=== PATIENT | male | born 1995 | race Two or more races ===

== ENCOUNTER 2025-03-10 19:13 | Emergency (ER) | payer MEDICAID, SELFPAY ==
[2025-03-10 19:14] VITALS: BMI 30.1
--- NOTE | 2025-03-10 19:17 | EKG_ITS ---
[facility] Test Date: 2025-03-10 Pat Name: MONICA RIZVI Department: Room: - Gender: Male Obiee Obia Solution Architect: : 1995 Requested By: ED Temporary Provider Order Number: [id number] Reading MD: ED Temporary Provider Measurements Intervals [place] Rate: 80 P: 47 [place]: 139 QRS: 59 QRSD: 98 T: 76 QT: 353 QTc: 409 Interpretive Statements SINUS RHYTHM NONSPECIFIC T-WAVE ABNORMALITY No previous ECG available for comparison /store/S0/[id number]/ecg/[id number].pdf
[2025-03-10 19:35] VITALS: BP 148/98; PULSE 80; RESP 18; TEMP 37.3; O2SAT 99
--- NOTE | 2025-03-10 19:47 | PD.EDARRY ---
ED Arrhythmia Palp. RME/HPI General Chief Complaint: Arrhythmia/Palpitations Stated Complaint: FAST HEART RATE WITH SOB, DIZZINESS, AND NAUSEA Time Seen by Provider: 03/10/25 19:55 Arrival date/time: 03/10/25 19:13 RME / HPI RME / HPI narrative: This section includes all my notes and documentations, including HPI, PE, and ED course. Andrés Cunningham MD HPI: 30yo male here with intermittent palpitations with other symptoms since yesterday. Symptoms can include intense fear, pounding and racing heart, sweating, chills, shaking, trouble breathing, chest pain, stomach pain, nausea, numbness and tingling in the hands and feet and face, confusion, hot flashes, and feeling faint. No other complaints. ROS: All negative except as documented in HPI. Physical Exam: General: Alert and oriented. Appears anxious. Eyes: Conjunctivae and lids clear. ENT: No nasal congestion. Neck: Supple. Heart: RRR. Lungs: No respiratory distress. Good air movement. No rhonchi, wheezing, rales. Skin: Warm and dry. Neuro: Alert and oriented X 3. I reviewed all diagnostic test results. My interpretation of the EKG is sinus rhythm with nonspecific ST-T changes. My interpretation of the chest x-ray is NAD. Blood tests unremarkable. At this point, diagnoses include palpitations due to anxiety. Treatment here included Xanax. Significant improvement. Recommended more outpatient cardiac workup. Based on my best medical judgment, made decision no further evaluation or treatment indicated at this time. Patient understands and agrees to the discharge instructions customized and printed, see below. Discharge instructions from Dr. Cunningham: 1. After extensive evaluation, there is no life-threatening condition. Such as heart attack or pneumothorax (collapsed lung). 2. Your symptoms may be due to underlying stress or anxiety or nerves. This is fairly common. 3. Take Xanax as needed. Whether this helps or not will be valuable information to your private doctors. 4. See a private doctor outside ER on 03/11/2025. To make sure there is no serious underlying heart condition, ask to help you get more tests for your heart that cannot be done here in the ER. Such as Holter Monitor (cardiac monitoring at home from a day to even a month), heart stress test (on treadmill or with medication), echocardiogram (imaging of your heart structures), heart catherization (checking for blockages in your heart arteries), and a referral to see a Manager Digital [employer]. 5. Seek immediate medical care with worsening or with any concerns. Andrés Cunningham MD Related Data Previous Rx's ?Medication ?Instructions ?Recorded naproxen 500 mg tablet 500 mg PO BID PRN pain #14 tabs 03/15/18 meclizine 25 mg tablet 25 mg PO BID PRN dizziness #20 tabs 10/08/21 dicyclomine 20 mg tablet 20 mg PO TID PRN abdominal pain 09/16/23 #30 tabs pantoprazole 40 mg tablet,delayed 40 mg PO QDAY #20 tabs 09/16/23 release (Protonix) alprazolam 0.5 mg tablet (Xanax) 0.5 mg PO BID PRN anxiety #10 tabs 03/10/25 Allergies Allergy/AdvReac Type Severity Reaction Status Date / Time No Known Allergies Allergy Verified 03/10/25 19:14 Review of Systems Review of Systems Systems Reviewed: All systems reviewed, normal except as documented Past Medical History Past Medical History CARDIAC: Negative Congestive Heart Failure RESPIRATORY: Negative Chronic Obstructive Pulmonary Disease (COPD) GENITOURINARY: Negative Renal Disease ENDOCRINE: Negative Diabetes Mellitus Type 1 or Diabetes Mellitus Type 2 Social History SMOKING STATUS: Never smoker ED Exam Narrative Physical exam: As noted in HPI. Course Course Course Narrative: CXR is ordered for determining the etiology of palpitations. Quality Measures none Orders Category Date Time Status EKG (ED ONLY) *Do not use* NOW Care 03/10/25 19:17 Completed EKG (ED Only) Stat Exams 03/10/25 19:17 Draft Vital Signs Vital signs: Vital Signs Temperature 99.1 F 03/10/25 19:35 Pulse Rate 80 03/10/25 19:35 Respiratory Rate 18 03/10/25 19:35 Blood Pressure 148/98 H 03/10/25 19:35 Pulse Oximetry (%) 99 03/10/25 19:35 Oxygen Delivery Method Room Air 03/10/25 19:35 Arrhythmia/Palpitations MDM Narrative MDM Narrative:: 30yo male here with intermittent palpitations with other symptoms since yesterday. Symptoms can include intense fear, pounding and racing heart, sweating, chills, shaking, trouble breathing, chest pain, stomach pain, nausea, numbness and tingling in the hands and feet and face, confusion, hot flashes, and feeling faint. No other complaints. Patient data External records reviewed:: [facility] previous records (Per chart review, patient was seen here on 09/16/23 for abdominal pain.) Clinical information provided by:: patient Social determinants that could affect healthcare access:: none Patient has the following chronic illnesses:: none How is presenting disease/condition affected by chronic disease/condition?: no chronic disease Evaluation data The following diagnostics were reviewed and interpreted by me:: lab results, radiology exam(s) and EKG tracing(s) (My interpretation of the EKG is: Sinus rhythm (80 bpm) with nonspecific ST-T changes. Andrés Cunningham MD) Lab and/or radiology exams considered but not ordered:: none Interpretation Summary: I reviewed all diagnostic test results. My interpretation of the EKG is sinus rhythm with nonspecific ST-T changes. My interpretation of the chest x-ray is NAD. Blood tests unremarkable. Medications / Prescriptions Medications or Prescriptions considered but not ordered:: none Medication administrations:: Xanax Consultations Consultation(s) initiated? (list below): No Diagnosis Differential diagnosis arrhythmia/palpitations: palpitations, anxiety, sinus tachycardia, artial fibrillation, artial flutter, supraventricular tachycardia and other Most likely diagnosis given after review of the tests above:: Palpitations due to anxiety Admission Indicated Admission indicated?: not indicated Explain why admission is indicated or not indicated:: With significant improvement and no condition needing emergent intervention, there was no indication for admission. Admission Request Was there a request for admission?: No Disposition Plan Disposition Plan: Discharge Discharge Attestation Discharge Attestation: The patient and all family members were given an opportunity to ask questions and understood the discharge instructions. Discharge instructions specifically effects, indications for sooner follow up or return to the emergency department, and the expected course of current diagnosis. Patient condition: Stable Discharge Plan Plan Patient Disposition: HOME (Self Care) Prescriptions/Referrals Prescriptions/Med Rec: New alprazolam [Xanax] 0.5 mg tablet 0.5 mg PO BID PRN (Reason: anxiety) Qty: 10 0RF No Action naproxen 500 mg tablet 500 mg PO BID PRN (Reason: pain) Qty: 14 0RF meclizine 25 mg tablet 25 mg PO BID PRN (Reason: dizziness) Qty: 20 0RF pantoprazole [Protonix] 40 mg tablet,delayed release (DR/EC) 40 mg PO QDAY Qty: 20 0RF dicyclomine 20 mg tablet 20 mg PO TID PRN (Reason: abdominal pain) Qty: 30 0RF Referrals: No Primary/Family,Physician [Primary Care Provider] - In 1 week Problem List Clinical Impression: Palpitations Patient/Caregiver Discharge Instructions Discharge Activity: activity as tolerated Education Materials: ED Anxiety Reaction, ED Panic Attack Additional Instructions: Discharge instructions from Dr. Cunningham: 1. After extensive evaluation, there is no life-threatening condition.? Such as heart attack or pneumothorax (collapsed lung). 2. Your symptoms may be due to underlying stress or anxiety or nerves.? This is fairly common. 3. Take Xanax as needed.? Whether this helps or not will be valuable information to your private doctors. 4. See a private doctor outside ER on 03/11/2025. To make sure there is no serious underlying heart condition, ask to help you get more tests for your heart that cannot be done here in the ER.? Such as Holter Monitor (cardiac monitoring at home from a day to even a month), heart stress test (on treadmill or with medication), echocardiogram (imaging of your heart structures), heart catherization (checking for blockages in your heart arteries), and a referral to see a Manager [employer]. 5. Seek immediate medical care with worsening or with any concerns.?? Instrucciones de manfred del Dr. Cunningham: 1. Tras barbara evaluaci?n exhaustiva, no se observa ninguna afecci?n que ponga en peligro la dolly, freddy un ataque card?aco o un neumot?rax (colapso pulmonar). 2. Evin s?ntomas pueden deberse a estr?s, ansiedad o nerviosismo subyacentes. [place] es bastante com?n. 3. [place] Xanax seg?n sea necesario. Si esto ayuda o no, ser? barbara informaci?n valiosa para evin m?dicos privados. 4. Consulte con un m?dico privado fuera de urgencias el 11/13/2024. Para asegurarse de que no haya barbara afecci?n card?jennifer subyacente grave, solicite ayuda para realizar m?s pruebas card?acas que no se puedan realizar en urgencias. Freddy un monitor Holter (monitorizaci?n card?jennifer en casa desde un d?a hasta un mes), barbara prueba de esfuerzo card?aco (en cinta caminadora o con medicaci?n), un ecocardiograma (im?genes de las estructuras card?acas), un cateterismo card?aco (para detectar obstrucciones en las arterias card?acas) y barbara derivaci?n a un cardi?logo. 5. Busque atenci?n m?dica inmediata si la afecci?n empeora o tiene alguna inquietud. Print Language: Sinhala Stand Alone Forms: Barbara Award Info., Patient Portal Info Letter
--- NOTE | 2025-03-10 19:55 | XR_ITS ---
Examination: PA lateral chest 3 views TECHNIQUE: Upright PA and lateral chest 2 views Date and time: March 10, 20252002 hours INDICATIONS: Chest pain today. FINDINGS: Normal heart size. Lungs are clear. The osseous structures are intact Impression : No active disease
[2025-03-10 20:38] LABS: Basophils # (Auto) 0.0 Thou/mm3 (0.0-0.2); Basophils % (Auto) 0 % (0-2.5); Eosinophils # (Auto) 0.2 Thou/mm3 (0.0-0.5); Eosinophils % (Auto) 2 % (0-10); Hematocrit 48.7 % (41.0-53.0); Hemoglobin 16.9 g/dL (13.5-16.0); Immature Granulocytes Auto 0.03 Thou/mm3 (0.00-0.00); Lymphocytes # (Auto) 3.3 Thou/mm3 (1.0-4.8); Lymphocytes % (Auto) 36 % (10-50); Mean Corpuscular HGB Conc 34.7 g/dl (31.0-37.0); Mean Corpuscular Hemoglobin 28.9 pg (25.0-35.0); Mean Corpuscular Volume 83 fL (80-100); Monocytes # (Auto) 0.6 Thou/mm3 (0.0-0.8); Monocytes % (Auto) 6 % (0-12); Neutrophils # (Auto) 5.0 Thou/mm3 (1.8-7.7); Neutrophils % (Auto) 55 % (37-80); Nucleated Red Blood Cell # 0.00 Thou/mm3 (0.00-0.00); Nucleated Red Blood Cell % 0 /100 WBC (0); Platelet Count 276 Thou/mm3 (140-440); RDW Standard Deviation 35.1 fL (35.1-43.9); Red Blood Count 5.84 Miln/mm3 (4.50-5.90); White Blood Count 9.0 Thou/mm3 (3.8-10.6)
[2025-03-10 20:52] LABS: Anion Gap 8 (7-16); BUN/Creatinine Ratio 8 Ratio (12-20); Blood Urea Nitrogen 8 mg/dL (9-23); Calcium 10.4 mg/dL (8.3-10.6); Carbon Dioxide 26.1 mMol/L (20.0-31.0); Chloride 107 mMol/L (98-107); Creatinine (Component) 1.0 mg/dL (0.6-1.3); Estimated Creatinine Clearance 100.2 mL/min (>60); Free T4 (Free Thyroxine) 1.00 ng/dL (0.89-1.76); Glucose 119 mg/dL (74-106); Magnesium 2.3 mg/dL (1.6-2.6); Osmolality,Calculated 280 (275-295); Potassium 3.9 mMol/L (3.4-5.1); Sodium 141 mMol/L (136-145); Thyroid Stimulating Hormone 3.84 uIU/mL (0.55-4.78); Troponin I < 0.002 ng/mL (0.0-0.045); eGFR > 60 See Note
== END 2025-03-10 21:12 | disposition home or self-care (01) ==
PROVIDERS: Emergency Provider Emergency Medicine
DX: R00.2 Palpitations (principal); R07.9 Chest pain, unspecified; R94.31 Abnormal electrocardiogram [ECG] [EKG]
CPT/HCPCS: 36415; 71046; 80048; 83735; 84439; 84443; 84484; 85025; 93005; 99283; A9270